=== PATIENT | female | born 1945 | race Caucasian/White ===

== ENCOUNTER 2020-10-22 21:43 | Outpatient (CLI) | payer OTHER ==
[~2020-10-22 21:43] MED LIST: DIOVAN HCT 80-11 TAB; GLUMETZA1000 MG; NEURONTIN300 MG; SYNTHROID50 MCG; TRAZODONE HCL50 MG; ZOCOR20 MG
== END 2020-10-22 21:44 | disposition home or self-care (01) ==
LOC: PPH VACUNA 21:43
PROVIDERS: ATTEND Emergency Medicine Pediatric Emergency Medicine
DX: Z23 Encounter for immunization (principal)

== ENCOUNTER → 2020-11-12 | Outpatient (CLI) | payer OTHER | END | disposition home or self-care (01) | LOC: PPH VACUNA | PROVIDERS: ATTEND Emergency Medicine Pediatric Emergency Medicine | DX: Z23 Encounter for immunization (principal) ==

== ENCOUNTER → 2021-07-04 | Outpatient (CLI) | payer OTHER | END | disposition home or self-care (01) | LOC: PPH VACUNA 08:00 | PROVIDERS: ATTEND Emergency Medicine Pediatric Emergency Medicine | DX: Z23 Encounter for immunization (principal) ==

== ENCOUNTER 2025-04-11 00:22 | Inpatient (IN) | payer OTHER ==
[~2025-04-11] VITALS: Ht 154.9 cm; Wt 46.3 kg
[~2025-04-11 00:22] MED LIST changes: +GLUMETZA PO; -GLUMETZA1000 MG
[2025-04-11] MEDS ORDERED: ACETAMINOPHEN 500 MG GEL..CAP PO PRN (00:45)
[2025-04-11] MEDS ORDERED: PANTOPRAZOLE SODIUM 40 MG/VIAL VIAL IV SCH (00:45)
--- NOTE | 2025-04-11 00:50 | NUR ---
PTE ALERTA Y ORIENTADA X3 EN COMPANIA DE AMBULANCIA Y FAMILIAR SIENDO TRANSFER DE UN CDT DE [place]. REFIERE VENIR YA QUE LA HEMOGLOBINA 9.5
[2025-04-11] MEDS ORDERED: 0.9 % SODIUM CHLORIDE 1,000 ML IV SCH (01:00)
[2025-04-11] MEDS ORDERED: LEVOTHYROXINE SODIUM 50 MCG TABLET PO SCH (06:00)
[2025-04-11 08:42] VITALS: BP 98/59; O2SAT 98
[2025-04-11 08:44] VITALS: BP 98/59
[2025-04-11 09:02] LABS: BASO % 0.3 % (0.1-1.2); EOS # 0.16 (0.04-0.54); EOS % 1.4 % (0.7-7.0); LYMPH # 1.28 (1.18-3.74); LYMPH % 11.4 % (19.3-53.1); MEAN PLATELET VOLUME 9.60 fl (9.4-12.4); MONO # 0.77 (0.24-0.82); MONO % 6.8 % (4.7-12.5); NEUT # 8.91 (1.56-6.13); NEUT % 79.0 % (34.0-71.1); RED CELL DISTRIBUTION WIDTH 13.2 % (11.6-14.4)
[2025-04-11 09:09] LABS: ERYTHROCYTE SEDIMENTATION RATE 86 mm/hr (0-30)
[2025-04-11 09:23] LABS: INR 1.09
[2025-04-11 09:31] LABS: URINE APPEARANCE Clear; URINE BILIRRUBIN Negative (NEGATIVE); URINE BLOOD Negative; URINE COLOR Yellow; URINE GLUCOSE Negative (NEGATIVE); URINE KETONE Trace (NEGATIVE); URINE NITRATE Negative; URINE PROTEIN Trace (NEGATIVE); URINE UROBILINOGEN 1.0 E.U./dl
[2025-04-11 09:32] LABS: ALT/SGPT 49.0 U/L (12-78); AST/SGOT 37.0 U/L (15-37); BILIRUBIN TOTAL 0.54 mg/dL (0.3-1.2); BUN CREA RATIO 28.0 (7.0-25.0); CREATININE SERUM 0.86 mg/dL (0.55-1.02); GFR 63.33; GLOBULINA 5.5 G/DL (2.4-3.5); GLUCOSE FASTING 173.0 mg/dL (65-100); OSMOLALITY SERUM 278.0 MOSM/KG (275-295); T4 TOTAL 10.45 UG/DL (4.8-13.9)
[2025-04-11 09:40] LABS: URINE BACTERIA 71.9 uL (0.0-1933); URINE EPITHELIAL CELLS 6.6 uL (0.0-38.8); URINE LEUKOCYTE Trace; URINE RBC 3.2 uL (0.0-20.8); URINE WBC 8.2 uL (0.0-23.2)
[2025-04-11 09:42] LABS: URINE CAST 0.00 uL (0.0-1.40)
[2025-04-11] MEDS ORDERED: POTASSIUM PHOS,M-BASIC-D-BASIC 3 MM/ML VIAL IV NR (12:30)
[2025-04-11] MEDS ORDERED: DEXTROSE 50 % IN WATER 0.5 G/ML VIAL IV PRN (13:30)
[2025-04-11] MEDS ORDERED: INSULIN LISPRO 1,000 UNIT/10 ML UNITS SUBCUTANEO PRN (13:30)
[2025-04-11] MEDS ORDERED: GABAPENTIN 300 MG CAPSULE PO SCH ×2 (17:00→21:00)
[2025-04-11] MEDS ORDERED: ENOXAPARIN SODIUM 40 MG/0.4 ML SYRINGE SUBCUTANEO SCH (17:00)
[2025-04-11] MEDS ORDERED: SIMVASTATIN 20 MG TABLET PO SCH (17:00)
[2025-04-11 19:21] VITALS: BP 100/58; O2SAT 99
[2025-04-11] MEDS ORDERED: ORPHENADRINE CITRATE 30 MG/ML AMPUL IM STA (21:10)
[2025-04-12 01:38] VITALS: BP 120/69; O2SAT 96
[2025-04-12 06:21] LABS: BASO % 0.3 % (0.1-1.2); EOS # 0.23 (0.04-0.54); EOS % 2.5 % (0.7-7.0); LYMPH # 0.84 (1.18-3.74); LYMPH % 9.0 % (19.3-53.1); MEAN PLATELET VOLUME 10.10 fl (9.4-12.4); MONO # 1.02 (0.24-0.82); MONO % 10.9 % (4.7-12.5); NEUT # 7.16 (1.56-6.13); NEUT % 76.7 % (34.0-71.1); RED CELL DISTRIBUTION WIDTH 13.2 % (11.6-14.4)
[2025-04-12 06:55] LABS: BUN CREA RATIO 24.0 (7.0-25.0); CREATININE SERUM 0.58 mg/dL (0.55-1.02); GFR 99.77; GLUCOSE FASTING 93.0 mg/dL (65-100); OSMOLALITY SERUM 280.0 MOSM/KG (275-295)
[2025-04-12] MEDS ORDERED: MAGNESIUM SULFATE IN WATER 50 ML IV NR (07:40)
[2025-04-12] MEDS ORDERED: SOD FERRIC GLUC COMPLX/SUCROSE 62.5 MG in 0.9 % SODIUM CHLORIDE 50 ML IV SCH (09:00)
[2025-04-12] MEDS ORDERED: Cyanocobalamin/Mecobalamin 1 TAB.SL SL SCH (09:00)
[2025-04-12 09:43] VITALS: BP 85/52
[2025-04-12] MEDS ORDERED: ORPHENADRINE CITRATE 30 MG/ML AMPUL IM STA (13:50)
[2025-04-12] MEDS ORDERED: ABANEU-SL TABL1 EACH SL (13:54)
[2025-04-12] MEDS ORDERED: NORFLEX100MG PO (13:56)
[2025-04-12] MEDS ORDERED: LOSARTAN POTASS50 MG PO (13:56)
[2025-04-12] MEDS ORDERED: ZOCOR20 MG PO (13:57)
[2025-04-12] MEDS ORDERED: NEURONTIN300 MG PO (13:57)
[2025-04-12] MEDS ORDERED: SYNTHROID50 MCG PO (13:58)
== END 2025-04-12 14:15 | disposition home or self-care (01) | DRG 684 ==
LOC: ER 00:22 → SURG 00:51 → MEDJ 00:51
PROVIDERS: General Practice; ADMIT Internal Medicine Geriatric Medicine; ATTEND Internal Medicine Geriatric Medicine
PROC: B020ZZZ Computerized Tomography (CT Scan) of Brain (ICD-10-PCS; principal; 2025-04-11)
PROC: B246ZZZ Ultrasonography of Right and Left Heart (ICD-10-PCS; 2025-04-11)
DX: N17.9 Acute kidney failure, unspecified (principal); F19.90 Other psychoactive substance use, unspecified, uncomplicated; D64.9 Anemia, unspecified; E86.0 Dehydration; I95.9 Hypotension, unspecified; E11.9 Type 2 diabetes mellitus without complications; E03.9 Hypothyroidism, unspecified; E78.00 Pure hypercholesterolemia, unspecified